=== PATIENT | female | born 1975 | race Caucasian/White ===

== ENCOUNTER 2021-04-28 09:12 | Outpatient (CLI) | payer OTHER, SELFPAY ==
--- NOTE | ~2021-04-28 | CT_ITS ---
EXAMINATION: CT LE RT wo con DATE: 04/28/2021 09:47 INDICATION: Right knee arthritis. TECHNIQUE: Computed tomography (CT) of the right lower limb was performed without intravenous contras t. Automated exposure control and iterative reconstruction technique were employed. The dose-length p roduct was 1814.84 mGy-cm. COMPARISON: Right knee radiographs 04/12/2021 FINDINGS: Bone alignment is normal. No fracture. There is mild right hip osteoarthritis. The knee dem onstrates moderate osteoarthritis of the patellofemoral compartment and mild osteoarthritis of the me dial and lateral compartments. There is a 1.6 cm subchondral cyst versus intraosseous ganglion at the junction of medial tibial condyle and intercondylar eminence posteriorly. There is a small knee join t effusion. There is a moderate-sized Brambila's cyst. IMPRESSION: 1. Moderate right knee osteoarthritis, worst at the patellofemoral compartment. 2. Small knee joint effusion. 3. Moderate-sized Brambila's cyst. Reviewed, dictated and finalized at location A.
== END 2021-04-28 09:13 | disposition home or self-care (01) ==
PROVIDERS: PCP Physician Assistant; Visit Provider Orthopaedic Surgery
DX: M17.11 Unilateral primary osteoarthritis, right knee (principal); M25.461 Effusion, right knee; M71.21 Synovial cyst of popliteal space [Baker], right knee
CPT/HCPCS: 73700

== ENCOUNTER 2021-05-30 07:14 | Outpatient (CLI) | payer OTHER, SELFPAY ==
[2021-05-30 08:11] LABS: Urine Cotinine NEGATIVE
== END 2021-05-30 07:15 | disposition home or self-care (01) ==
PROVIDERS: PCP Physician Assistant; Visit Provider Orthopaedic Surgery
DX: Z87.891 Personal history of nicotine dependence (principal)
CPT/HCPCS: 80307

== ENCOUNTER 2021-06-27 11:21 | Outpatient (CLI) | payer OTHER, SELFPAY ==
--- NOTE | 2021-06-27 12:49 | ECG_ITS ---
Measurements Intervals [place] Rate: 61 P: 31 IN: 156 QRS: 10 QRSD: 94 T: 5 QT: 414 QTc: 420 Interpretive Statements SINUS RHYTHM WITH SINUS ARRHYTHMIA BORDERLINE T WAVE ABNORMALITY- INFERIOR LEADS BASELINE ARTIFACT- I, II, III, AVL, AVF BORDERLINE ECG Electronically Signed On 06-27-2021 12:57:49 CDT by Juan Fraser D.O.
[2021-06-27 13:12] LABS: Basophils Percent Auto 0.4 % (0.2-1.2); Eosinophils Absolute Auto 0.1 K/mm3 (0-0.3); Eosinophils Percent Auto 0.9 % (0-4.4); Hematocrit 37.2 % (37.0-47.0); Hemoglobin 12.2 g/dL (12.0-15.0); Immature Granulocyte Absolute 0.01 K/mm3 (0.00-0.031); Immature Granulocyte Percent A 0.1 % (0-0.5); Lymphocytes Percent Auto 32.6 % (18.3-44.2); Mean Corpuscular HGB Conc 32.8 g/dl (32-36); Mean Corpuscular Volume 88.4 fl (80-100); Mean Platelet Volume 10.4 fl (7.4-10.4); Monocytes Absolute Auto 0.4 K/mm3 (0.1-0.6); Monocytes Percent Auto 5.2 % (2.6-8.5); Neutrophils Absolute Auto 4.7 K/mm3 (1.3-6.7); Neutrophils Percent Auto 60.8 % (45.5-73.1); Platelet Count Result 278 k/mm3 (150-375); Red Blood Count 4.21 M/mm3 (4.2-5.4); Red Cell Distribution Width 13.2 % (11.5-14.5); White Blood Count 7.7 K/mm3 (4.5-10.0)
[2021-06-27 13:15] LABS: Albumin Level 4.1 g/dL (3.5-5.1)
[2021-06-27 13:19] LABS: Anion Gap 4 mmol/L (8-16); Blood Urea Nitrogen 13 mg/dL (7-17); Calcium 9.4 mg/dL (8.4-10.2); Carbon Dioxide 30 mmol/L (22-30); Chloride 105 mmol/L (98-107); Estimated Glomerular Filt Rate > 60; Glucose 98 mg/dL (65-110); Potassium 4.2 mmol/L (3.4-5.0); Sodium 139 mmol/L (137-145)
[2021-06-27 13:50] LABS: Hemoglobin A1C 5.5 % (<5.7)
== END 2021-06-27 11:22 | disposition home or self-care (01) ==
LOC: ANHSURGERY 11:21
PROVIDERS: Anesthesiology; PCP Physician Assistant; Visit Provider Orthopaedic Surgery
DX: M17.11 Unilateral primary osteoarthritis, right knee (principal); Z01.818 Encounter for other preprocedural examination; Z51.81 Encounter for therapeutic drug level monitoring; Z79.899 Other long term (current) drug therapy; R94.31 Abnormal electrocardiogram [ECG] [EKG]
CPT/HCPCS: 36415; 80048; 82040; 83036; 85025; 87081; 93005

== ENCOUNTER 2021-07-26 02:29 | Day surgery (SDC) | payer OTHER, SELFPAY ==
[2021-06-27 12:05] VITALS: BP 117/85; PULSE 73; RESP 16; TEMP 36.9; O2SAT 100; BMI 34.1
--- NOTE | 2021-07-19 13:23 | PC.NURSE ---
Patient was contacted states no change in health since interviewed on 06/27/2021 she was given new date and time of surgery. This case was rescheduled and moved to 2 days later.
--- NOTE | 2021-07-25 09:02 | WPDANESEPPF ---
Anes - Initial Pre Proc Eval Procedure: Operation Date: 07/26/21 07:30 Proposed Procedures p Custom Right Total Knee Replacement - Timoteo Tabares MD Date/Time: 07/25/21 09:02 Surgeon: Timoteo Tabares MD Pre Op Diagnosis: primary OA right knee Patient Data Age: 46 Gender: F Height: 1.63 m Weight: 90.2 kg Last Vital Signs Temp 36.9 C 06/27/21 12:05 Pulse 73 06/27/21 12:05 Resp 16 06/27/21 12:05 BP 117/85 06/27/21 12:05 Pulse Ox 100 06/27/21 12:05 Allergies Allergy/AdvReac Type Severity Reaction Status Date / Time Sulfa (Sulfonamide Allergy Severe Anaphylaxis Verified 07/26/21 06:28 Antibiotics) atenolol Allergy Unknown Chest Verified 07/26/21 06:28 Pain, DYSPNEA atorvastatin AdvReac Unknown Joint Verified 07/26/21 06:28 Pain, MUSC PAIN Home Medications Medication Instructions Recorded Confirmed Type aspirin 81 mg tablet,delayed 81 mg PO DAILY 03/20/21 07/26/21 History release cetirizine 10 mg tablet 10 mg PO DAILY PRN 03/20/21 07/26/21 History hydrochlorothiazide 12.5 mg tablet 12.5 mg PO QAM 03/20/21 07/26/21 History losartan 25 mg tablet 25 mg PO QAM 03/20/21 07/26/21 History multivitamin 1 tablet PO DAILY 03/20/21 07/26/21 History pravastatin 20 mg tablet 20 mg PO QAM 03/20/21 07/26/21 History apple cider vinegar 1,000 mg PO DAILY 06/27/21 07/26/21 History ascorbate calcium (vitamin C) 500 mg PO DAILY 06/27/21 07/26/21 History ascorbic acid-collagen [Collagen 1 cap PO DAILY 06/27/21 07/26/21 History Plus Vitamin C] b.pmz-jdu-xznss-baf-kigr-hxsqu 2 ea PO DAILY 06/27/21 07/26/21 History [Black Cohosh Menopause Complex] ketorolac 10 mg PO Q12-24H PRN 06/27/21 07/26/21 History Patient hx anesthesia problems: none Family hx anesthesia problems: none PMFSH Past Medical History Medical History (Updated 07/25/21 @ 09:04 by Andres Richardson DO) Aortic atherosclerosis CVA (cerebral vascular accident) x2 at age 31, due to hypertensive crisis. No residual deficits GERD (gastroesophageal reflux disease) History of nicotine dependence Hypertension Migraine Surgical History Surgical History History of cholecystectomy (~2010) History of partial hysterectomy (~2009) History of varicose vein stripping (~2005) Family History Family History Mother Arthritis Skin cancer Social History Social History Smoking status: Former smoker Tobacco type: cigarettes Smoking end date: 04/17/21 Additional smoking assessment comments: SMOKED 2 CIG/MONTHS X 5 YEARS, QUIT 04/17/21 Alcohol intake: current Alcohol use details: once per month Substance use: never Living arrangements: with family Additional living arrangements comments: HUSB Spiritual care concerns: No Anes - Eval Final PreProcedure Day of Procedure 07/25/21 09:02 Patient weight: obese Heart: regular rate and rhythm Lungs: clear to auscultation and normal air movement Airway: Mallampati scale class II Neurological: alert and oriented Last oral intake: >/= 8 hours ASA classification: III Emergent: no Anesthetic plan: proceed Anesthesia type and monitoring: general LMA and standard monitoring Informed Consent: The patient's anesthetic plan and its attendant risks and benefits were discussed with the patient/family/POA. Questions were solicited and answers provided to the satisfaction of the patient/family/POA.
--- NOTE | 2021-07-25 09:04 | WPDANESPNB ---
Anes - Peripheral Nerve Block Date/Time: 07/25/21 09:04 I have discussed with the patient/family/POA the placement of a peripheral nerve block for post-operative pain management, including associated risks, benefits, complications, and side effects. Alternative methods of post-operative analgesia were detailed. Questions were solicited and answers provided to the satisfaction of the patient/family/POA. Time-Out: A pre-procedural Time-Out was completed immediately before starting the procedure and confirmed: Patient Identification, Site, Procedure, Patient Position and the Availability of Requisite Equipment. Clinical Indications: Acute post-operative pain management requested by the operative surgeon. Nerve Block Insertion Note Anes-nerve block: adductor canal right Patient position: supine Skin prep: chlorhexidine Needle: 22 gauge, stimulating, insulated echogenic needle. Needle length: 80 mm Technique: ultrasound Injectate: bupivacaine 0.5% with epi 5 mcg/ml (30cc - no epi) Observations: tolerated well Complications: none Procedure start time:: 710 Procedure end time:: 714
[2021-07-26] VITALS (16 sets, daily range): BP systolic 107–130; BP diastolic 57–93; PULSE 69–110; RESP 7–16; TEMP 36.3–36.6; O2SAT 93–100
--- NOTE | ~2021-07-26 | XR_ITS ---
EXAMINATION: XR knee RT 2V EXAM DATE: 07/26/2021 10:44 INDICATION: Right knee total arthroplasty. TECHNIQUE: Portable frontal, crosstable lateral projections right knee obtained immediately followin g arthroplasty performed by orthopedic surgeon Timoteo Tabares MD. FINDINGS: Patient is status post total knee arthroplasty. The orthopedic hardware is in expected po sition. There is small amount of subcutaneous gas, gas within the knee joint space. Overlying soft tissue swelling. Correlate with procedure note. IMPRESSION: Status post total right knee arthroplasty. Reviewed, dictated and finalized at location B.
[2021-07-26] MEDS: ACETAMINOPHEN 500 MG TABLET 1000 MG PO (06:42)
[2021-07-26] MEDS: LACTATED RINGERS 1,000 ML 30 ML IV CONT ×2 (06:50→10:29)
[2021-07-26] MEDS: TRANEXAMIC ACID 1,000MG/ISO100 1,000 MG/100 ML BAG 200 MG IVPB (06:56)
--- NOTE | 2021-07-26 07:22 | WPDHPUPDATE1 ---
History and Physical Update Update Date/Time: 07/26/21 07:22 History and Physical has been reviewed, including an updated exam of the patient. There are NO changes in the patient's condition. Risks, benefits, and alternatives have been discussed and questions answered. Patient agrees to proceed with procedure.
[2021-07-26] MEDS: ceFAZolin 2 GM/D5W 50 ML 2 GM/50 ML BAG IVPB (07:26)
[2021-07-26] MEDS: GENTAMICIN BONE CEMENT REFOBACIN 1 EACH TOPICAL (09:08)
[2021-07-26] MEDS: fentaNYL CITRATE INJ (*CRX) 100 MCG/2 ML VIAL 25 MCG IV PUSH ×2 (11:19→11:29)
[2021-07-26] MEDS: ONDANSETRON INJ 4 MG/2 ML VIAL IV PUSH (11:45)
[2021-07-26] MEDS: oxyCODONE HCL (*CRX) 5 MG TAB IR PO (12:56)
--- NOTE | 2021-07-26 13:15 | SUR.PHASEII ---
1315- Dr. Tabares to outpatient room 15 and rounded on patient- notified MD patient cleared by physical therapy. Per Dr. Tabares he is OK with discharge home once patient tolerates lunch, has tolerable pain level, and meets anesthesia discharge criteria.
--- NOTE | 2021-07-26 14:35 | SUR.PHASEII ---
9550- Call to Dr. Richardson to verify patient OK for discharge home. Pain tolerable with block, vital signs stable, and anesthesia discharge criteria met at this time. Per Dr. Richardson can discharge patient home.
--- NOTE | 2021-07-26 17:05 | W.PM.PROC2 ---
Procedure Note - Detailed Date of Procedure 07/26/21 Pre-op Diagnosis primary OA right knee Post-op Diagnosis same Procedure Performed Total knee arthroplasty, right. Surgeon Timoteo Tabares MD [employer] Yelitza Berman PA-C Anesthesia general and regional (Subsartorial block.) Description of Procedure Physician environmental emergencies assistant, Yelitza Berman PA-C, required for surgery; including patient positioning, draping, tissue retraction, maintaining instrument position, cement removal, wound closure, and dressing placement. Preoperative antibiotics were given. The limb was prepped and draped in the usual sterile fashion with a well-padded tourniquet high on the thigh. The limb was exsanguinated and the tourniquet inflated to 300 mmHg. A longitudinal incision was created just medial to the patella. A trivector approach to the knee was performed. Arthrotomy was taken down through the joint capsule. No significant releases were initially taken. The femur was exposed and the F1 jig was applied. The coring tool was used to remove the cartilage for the F2 jig to sit flush with the bone. The jig was pinned and the distal cut carefully taken. Caliper measurements confirmed appropriate bony resections according to the preoperative templated plan. The F4 cutting jig for the femur was applied, at the standard rotation. The AP and anterior chamfer cuts were taken. The F5 jig was applied and the posterior chamfer cuts were taken. The tibia was prepared using the T1 jig, after removing cartilage for the jig contact points. Proper alignment was checked with the alignment leon. The tibia was cut using the T1u guide. Gap balancing was performed. Gap measurements were taken and the knee was trialed. Excellent alignment and soft tissue balancing was confirmed. The posterior cruciate ligament was recessed along the proximal tibia. The patella was cut for resurfacing. Three lug holes were drilled. Meniscal remnants were removed. The trial components were assembled. Excellent range of motion and proper soft tissue balancing were confirmed throughout the full range of motion. Patellar tracking was excellent. The knee was copiously irrigated periodically throughout the procedure. The real implants were cemented into position. Excess cement was carefully removed. The wound was closed in layers with interrupted #1 Vicryl suture, 2-0 strata fix suture, 0 strata fix suture, 2-0 strata fix suture. Steri-Strips placed on the skin with the knee flexed. Sterile bulky dressing applied. The patient was brought to the recovery room in stable condition. There were no complications. Implants [employer]form[employer] Custom total knee arthroplasty. Cemented. Cruciate retaining. 6A insert. 32 mm round patella. Estimated Blood Loss 50 Tourniquet Time 99 Drains No Complications No immediate complications Condition stable Disposition PACU
== END 2021-07-26 14:45 | disposition home or self-care (01) ==
PROVIDERS: PCP Physician Assistant; Visit Provider Orthopaedic Surgery
PROC: (CPT 27447; principal; 2021-07-26 07:30)
DX: M17.11 Unilateral primary osteoarthritis, right knee (principal); G89.18 Other acute postprocedural pain; I10 Essential (primary) hypertension; K21.9 Gastro-esophageal reflux disease without esophagitis; I70.0 Atherosclerosis of aorta; Z86.73 Personal history of transient ischemic attack (TIA), and cerebral infarction without residual deficits; Z79.82 Long term (current) use of aspirin; Z87.891 Personal history of nicotine dependence; E66.9 Obesity, unspecified; Z68.34 Body mass index [BMI] 34.0-34.9, adult
CPT/HCPCS: 27447; 64447; 36415; 73560; 80048; 82040; 83036; 85025; 86850; 86900; 86901; 87081; 93005; 97161; A9270; C1713; C1776; J0171; J0690; J1100; J1885; J2250; J2270; J2405; J2590; J2704; J2795; J3010; J7120

== ENCOUNTER 2021-09-27 14:14 | Outpatient (CLI) | payer OTHER, SELFPAY ==
[2021-09-27 15:25] LABS: Anion Gap 9 mmol/L (8-16); Blood Urea Nitrogen 12 mg/dL (7-17); Calcium 9.2 mg/dL (8.4-10.2); Carbon Dioxide 30 mmol/L (22-30); Chloride 101 mmol/L (98-107); Estimated Glomerular Filt Rate > 60; Glucose 122 mg/dL (65-110); Potassium 3.8 mmol/L (3.4-5.0); Sodium 140 mmol/L (137-145)
== END 2021-09-27 14:15 | disposition home or self-care (01) ==
LOC: ANHSURGERY 14:15
PROVIDERS: Anesthesiology; PCP Physician Assistant; Visit Provider Orthopaedic Surgery
DX: Z79.899 Other long term (current) drug therapy (principal)
CPT/HCPCS: 36415; 80048

== ENCOUNTER 2021-10-02 03:15 | Day surgery (SDC) | payer OTHER, SELFPAY ==
[2021-09-26 14:49] VITALS: BMI 35.6
--- NOTE | 2021-09-26 14:57 | PC.NURSE ---
Report to the Outpatient Waiting Room, entrance under the green pavilion located off [facility], at 11:30 on date 10/02/21. OR Time: 1:30. - You and your visitor will be asked a series of questions to screen for COVID 19 for your protection. - A mask is required within the hospital. - Only one visitor is allowed at this time. Patient visitors will be guided where to wait when not with patient. Preoperative COVID Testing Requirements: No COVID Test needed if: (proof is required; if not received patient will have Rapid Test prior to entry) - Patient has received COVID Vaccine at least 14 days prior to procedure date or - Patient has positive COVID test result within last 90 days of surgery date. COVID Test needed if above criteria is not met If not COVID vaccinated a COVID test must be conducted within 72 hours of surgery and patient is asked to isolate self from time of testing until procedure. You will go to the [facility] for your COVID testing. The [facility] is located at the corner of [address] [facility]. You will only be called if COVID results are positive and your surgeon may reschedule your elective surgery date. Patients may have clear liquids (water, carbonated beverages, clear teas, apple juice) until 3 hours prior to surgery with a maximum of 20 ounces. - No food from midnight until time of surgery - Infants may have breast milk until 4 hours before surgery, formula 6 hours prior to surgery. - Children will be allowed to drink immediately following surgery. If applicable, please bring a bottle or sippy cup to assist with drinking. Juice, water, soda, and popsicles are readily available. For infants on formula, please bring formula the day of surgery. Pacifiers are allowed. Take the following medications with a SIP of water the morning of surgery: PAIN PILL IF NEEDED Medications to discontinue per physician VITAMINS/SUPPLEMENTS STOP 3 DAYS PRE-OP, ASPIRIN AND KETOROLAC PER DR. HOWELL Please no make-up, nail serbian, hairspray, perfume, deodorant, or body powder the day of surgery. No jewelry (including any body piercings) or valuables the day of surgery, leave them at home. Please take a shower or bath the night before, or the morning of, surgery with an antibacterial soap. Wear comfortable, loose fitting clothing. Children are encouraged to wear pajamas. - Jewelry must be removed prior to entering the operating room. Rings and piercings that are not removed may be cut off. - The hospital will not accept responsibility for valuables. - Please leave all valuables, including medications, at home the day of surgery. If you are going home after surgery, a licensed company truck driver must drive you home. - NO public transportation without another adult. - We recommend that an adult stay with you for 24 hours following discharge. - We also recommend that you do not drive, make important decision, drink alcoholic beverages, or take any drugs that were not prescribed by your health care provider for at least 24 hours after your discharge time. For Pediatric surgeries, we recommend two adults accompany the child home (only one inside the building at this time). Follow any additional instructions given to you from your surgeon. Telephone instructions given to NOLA LEE and asked if any additional questions and then verbalized understanding. Patient advised to call surgeon office or pre surgery nurse liaison [phone] if any additional questions.
[2021-10-02] VITALS (8 sets, daily range): BP systolic 105–139; BP diastolic 77–83; PULSE 56–100; RESP 12–16; TEMP 36.1–36.6; O2SAT 98–100
[2021-10-02] MEDS: KETOROLAC 15 MG/ML VIAL (*BKC) IV PUSH (12:21)
[2021-10-02] MEDS: LACTATED RINGERS 1,000 ML 30 ML IV CONT ×2 (12:30→15:05)
--- NOTE | 2021-10-02 12:32 | WPDANESEPPF ---
Anes - Initial Pre Proc Eval Procedure: Operation Date: 10/02/21 13:30 Proposed Procedures p Right Knee Manipulation - Timoteo Tabares MD Date/Time: 10/02/21 12:32 Surgeon: Timoteo Tabares MD Pre Op Diagnosis: s/p right total knee replacement Patient Data Age: 46 Gender: F Height: 1.63 m Weight: 96.2 kg Last Vital Signs Temp 36.6 C 10/02/21 11:30 Pulse 72 10/02/21 11:30 Resp 16 10/02/21 11:30 BP 139/81 10/02/21 11:30 Pulse Ox 100 10/02/21 11:30 Allergies Allergy/AdvReac Type Severity Reaction Status Date / Time Sulfa (Sulfonamide Allergy Severe Anaphylaxis Verified 09/26/21 14:47 Antibiotics) atenolol Allergy Intermediate Chest Verified 10/02/21 11:59 Pain, DYSPNEA atorvastatin AdvReac Intermediate Joint Verified 10/02/21 11:59 Pain, MUSC PAIN Home Medications Medication Instructions Recorded Confirmed Type aspirin 81 mg tablet,delayed 81 mg PO DAILY 03/20/21 10/02/21 History release cetirizine 10 mg tablet 10 mg PO DAILY PRN 03/20/21 10/02/21 History hydrochlorothiazide 12.5 mg tablet 12.5 mg PO QAM 03/20/21 10/02/21 History losartan 25 mg tablet 25 mg PO QAM 03/20/21 10/02/21 History multivitamin 1 tablet PO DAILY 03/20/21 10/02/21 History pravastatin 20 mg tablet 20 mg PO QAM 03/20/21 10/02/21 History Black Cohosh Menopause Complex 2 ea PO DAILY 06/27/21 10/02/21 History Collagen Plus Vitamin C 1 cap PO DAILY 06/27/21 10/02/21 History apple cider vinegar 1,000 mg PO DAILY 06/27/21 10/02/21 History ascorbate calcium (vitamin C) 500 mg PO DAILY 06/27/21 10/02/21 History ketorolac 10 mg PO Q12-24H PRN 06/27/21 10/02/21 History oxycodone-acetaminophen 5 mg-325 1 - 2 tablet PO Q4-6H PRN #40 09/26/21 10/02/21 Rx mg tablet tablet MDD 6 Patient hx anesthesia problems: none Family hx anesthesia problems: none Results Review: All pre-operative results and documents have been reviewed as part of the pre-operative evaluation. [facility] Past Medical History Medical History Aortic atherosclerosis CVA (cerebral vascular accident) x2 at age 31, due to hypertensive crisis. No residual deficits GERD (gastroesophageal reflux disease) History of nicotine dependence Hypertension Migraine Surgical History Surgical History History of cholecystectomy (~2010) History of partial hysterectomy (~2009) History of total right knee replacement (~07/24/21) History of varicose vein stripping (~2005) Family History Family History Mother Arthritis Skin cancer Social History Social History Smoking status: Former smoker Tobacco type: cigarettes Smoking end date: 04/24/21 Additional smoking assessment comments: 1-2 CIGARETTES A WEEK, OFF AND ON Alcohol intake: never Alcohol use details: once per month Substance use: never Substance use type: does not use Living arrangements: with family Additional living arrangements comments: HUSB Spiritual care concerns: No Anes - Eval Final PreProcedure Day of Procedure 10/02/21 12:32 Patient weight: obese Heart: regular rate and rhythm Lungs: clear to auscultation Airway: Mallampati scale class II Neurological: alert and oriented Last oral intake: >/= 8 hours ASA classification: III Emergent: no Anesthetic plan: proceed Anesthesia type and monitoring: general LMA and standard monitoring Results Review: All pre-operative results and documents have been reviewed as part of the pre-operative evaluation. Informed Consent: The patient's anesthetic plan and its attendant risks and benefits were discussed with the patient/family/POA. Questions were solicited and answers provided to the satisfaction of the patient/family/POA.
--- NOTE | 2021-10-02 13:22 | WPDHPUPDATE1 ---
History and Physical Update Update Date/Time: 10/02/21 13:22 The correct side is RIGHT. History and Physical has been reviewed, including an updated exam of the patient. There are NO changes in the patient's condition. Risks, benefits, and alternatives have been discussed and questions answered. Patient agrees to proceed with procedure.
[2021-10-02] MEDS: ONDANSETRON INJ 4 MG/2 ML VIAL IV PUSH (13:55)
[2021-10-02] MEDS: diphenhydrAMINE HCl INJ 50 MG/ML VIAL 25 MG IV PUSH (14:05)
[2021-10-02] MEDS: fentaNYL CITRATE INJ (*CRX) 100 MCG/2 ML VIAL 25 MCG IV PUSH ×8 (14:05→14:43)
[2021-10-02] MEDS: DEXAMETHASONE SOD PHOS INJ 4 MG/ML VIAL 8 MG IV PUSH (14:05)
[2021-10-02] MEDS: oxyCODONE HCL (*CRX) 5 MG TAB IR PO (15:32)
--- NOTE | 2021-10-02 17:05 | W.PM.PROC2 ---
Procedure Note - Detailed Date of Procedure 10/02/21 Pre-op Diagnosis 1.s/p right total knee replacement 2. right knee contracture. Post-op Diagnosis same Procedure Performed Manipulation under anesthesia, right knee. Surgeon Timoteo Tabares MD [employer]ation [employer]a Analyst Yelitza Bridges PA-C Anesthesia general Description of Procedure A general anesthetic was administered. Examination revealed range of motion from 0 to 95?. Gentle flexion improve the motion to 125?. Adhesions were felt to gently release. Range of motion and balance of the knee felt optimal. Estimated Blood Loss 0 Complications No immediate complications Condition stable Disposition PACU
== END 2021-10-02 16:10 | disposition home or self-care (01) ==
PROVIDERS: PCP Physician Assistant; Visit Provider Orthopaedic Surgery
PROC: (CPT 27570; principal; 2021-10-02 13:30)
DX: M24.561 Contracture, right knee (principal); Z79.82 Long term (current) use of aspirin; I70.0 Atherosclerosis of aorta; Z86.73 Personal history of transient ischemic attack (TIA), and cerebral infarction without residual deficits; K21.9 Gastro-esophageal reflux disease without esophagitis; Z87.891 Personal history of nicotine dependence; E66.9 Obesity, unspecified; Z68.36 Body mass index [BMI] 36.0-36.9, adult
CPT/HCPCS: 27570; A9270; J1100; J1200; J1885; J2250; J2405; J2704; J3010; J7120

== ENCOUNTER 2022-06-05 10:16 | Outpatient (CLI) | payer OTHER, SELFPAY ==
--- NOTE | ~2022-06-05 | XR_ITS ---
XR knee LT min 4V DATE: 06/05/2022 10:44 INDICATION: Left knee pain TECHNIQUE: [facility] and standing AP, PA and COMPARISON: 04/12/2021 bilateral knees FINDINGS: There is joint space narrowing and prominent periarticular spurring at the patellofemoral j oint consistent with osteoarthritis. There is mild periarticular spurring of the medial femoral condyle. Medial and lateral compartment killian int spaces are relatively preserved. No fracture or dislocation or joint effusion. No radiopaque interarticular loose body or chondrocalci nosis. No periosteal reaction or bone destruction. IMPRESSION: Osteophytosis involving the patellofemoral and medial compartments Reviewed, dictated and finalized at location A.
== END 2022-06-05 10:17 | disposition home or self-care (01) ==
LOC: ANHIMG 10:18
PROVIDERS: PCP Physician Assistant; Visit Provider Orthopaedic Surgery
DX: M17.12 Unilateral primary osteoarthritis, left knee (principal); M25.762 Osteophyte, left knee
CPT/HCPCS: 73564

== ENCOUNTER 2022-06-07 07:05 | Outpatient (CLI) | payer OTHER, SELFPAY ==
--- NOTE | 2022-06-07 | ECG_ITS ---
Measurements Intervals [place] Rate: 70 P: 43 AL: 156 QRS: 14 QRSD: 102 T: 30 QT: 394 QTc: 426 Interpretive Statements SINUS RHYTHM VOLTAGE CRITERIA FOR LVH BORDERLINE ST-T WAVE ABNORMALITY- DIFFUSE LEADS BORDERLINE ECG Electronically Signed On 06-07-2022 18:24:26 CDT by Juan Fraser D.O.
[2022-06-07 07:40] LABS: Hemoglobin A1C 5.3 % (<5.7)
[2022-06-07 07:43] LABS: Albumin Level 4.3 g/dL (3.5-5.1); Estimated Glomerular Filt Rate 60; Glucose 105 mg/dL (65-110)
[2022-06-07 07:46] LABS: Hematocrit 39.3 % (37.0-47.0); Hemoglobin 13.2 g/dL (12.0-15.0)
[2022-06-07 07:47] LABS: Urine Cotinine NEGATIVE
== END 2022-06-07 07:06 | disposition home or self-care (01) ==
PROVIDERS: PCP Physician Assistant; Visit Provider Orthopaedic Surgery
DX: M17.12 Unilateral primary osteoarthritis, left knee (principal); Z01.818 Encounter for other preprocedural examination; R94.31 Abnormal electrocardiogram [ECG] [EKG]
CPT/HCPCS: 80307; 82040; 82565; 82947; 83036; 85014; 85018; 93005

== ENCOUNTER 2022-06-22 12:53 | Outpatient (CLI) | payer OTHER, SELFPAY ==
--- NOTE | ~2022-06-22 | CT_ITS ---
EXAMINATION: CT LE LT wo con DATE: 06/22/2022 13:55 INDICATION: Left knee arthritis TECHNIQUE: High resolution computed tomography (CT) of the left lower limb extending from the hip thr ough the ankle was performed without intravenous contrast. Additional sagittal and coronal reconstruc tions were performed. Automated exposure control and iterative reconstruction technique were employed . The dose-length product was 1786.80 mGy-cm. COMPARISON: 06/05/2022 FINDINGS: Proximally 1 severe lateral patellar subluxation with moderate to severe joint space narrowing at the lateral aspect of the patellofemoral compartment and a few tiny cystlike changes along the abutting articular cortices of the lateral patellar facet and lateral trochlea. Small patellofemoral marginal osteophytes are present. Small marginal osteophytes in the medial and lateral compartments with relat ively preserved joint spaces on nonweightbearing imaging. No fracture. Small bone island at the media l femoral condyle. Additional mild osteoarthritis at the left hip and ankle joints. Moderate to sever e osteoarthritis with additional associated subarticular cystic changes at the subtalar joint. Large os trigonum. No hip, knee or ankle joint effusion. Soft tissues including the musculature of the left upper and lower leg are unremarkable. Visualized visceral organs of the pelvis are unremarkable. No free fluid in the pelvis. No pathologically enlarged pelvic or left inguinal lymphadenopathy. IMPRESSION: 1. Polyarticular osteoarthritis, moderate to severe at the patellofemoral compartment of the left kne e and at the subtalar joint at the left hindfoot. No acute osseous abnormality. Reviewed, dictated and finalized at location A. IMPRESSION: 1. Polyarticular osteoarthritis, moderate to severe at the patellofemoral regina rtment of the left knee and at the subtalar joint at the left hindfoot. No acut e osseous abnormality.
== END 2022-06-22 12:54 | disposition home or self-care (01) ==
PROVIDERS: PCP Physician Assistant; Visit Provider Orthopaedic Surgery
DX: M17.12 Unilateral primary osteoarthritis, left knee (principal)
CPT/HCPCS: 73700

== ENCOUNTER 2022-07-31 08:05 | Outpatient (CLI) | payer OTHER, SELFPAY ==
[2022-07-31 09:19] LABS: Basophils Percent Auto 0.4 % (0.2-1.2); Eosinophils Percent Auto 0.3 % (0-4.4); Hematocrit 41.4 % (37.0-47.0); Hemoglobin 13.4 g/dL (12.0-15.0); Immature Granulocyte Absolute 0.06 K/mm3 (0.00-0.031); Immature Granulocyte Percent A 0.5 % (0-0.5); Lymphocytes Absolute Auto 1.99 K/mm3 (0.9-3.2); Lymphocytes Percent Auto 17.5 % (18.3-44.2); Mean Corpuscular HGB Conc 32.4 g/dl (32-36); Mean Corpuscular Hemoglobin 28.6 pg (26-34); Mean Corpuscular Volume 88.5 fl (80-100); Mean Platelet Volume 10.9 fl (7.4-10.4); Monocytes Absolute Auto 0.6 K/mm3 (0.1-0.6); Monocytes Percent Auto 4.9 % (2.6-8.5); Neutrophils Absolute Auto 8.7 K/mm3 (1.3-6.7); Neutrophils Percent Auto 76.4 % (45.5-73.1); Platelet Count Result 275 k/mm3 (150-375); Red Blood Count 4.68 M/mm3 (4.2-5.4); Red Cell Distribution Width 12.9 % (11.5-14.5); White Blood Count 11.4 K/mm3 (4.5-10.0)
[2022-07-31 09:29] LABS: Urine Cotinine NEGATIVE
[2022-07-31 09:29] LABS: Albumin Level 4.5 g/dL (3.5-5.1)
[2022-07-31 09:32] LABS: Anion Gap 12 mmol/L (8-16); Blood Urea Nitrogen 17 mg/dL (7-17); Calcium 9.5 mg/dL (8.4-10.2); Carbon Dioxide 26 mmol/L (22-30); Chloride 100 mmol/L (98-107); Estimated Glomerular Filt Rate > 60; Glucose 91 mg/dL (65-110); Potassium 4.2 mmol/L (3.4-5.0); Sodium 138 mmol/L (137-145)
== END 2022-07-31 08:06 | disposition home or self-care (01) ==
LOC: ANHSURGERY 08:12
PROVIDERS: Anesthesiology; PCP Physician Assistant; Visit Provider Orthopaedic Surgery
DX: M17.12 Unilateral primary osteoarthritis, left knee (principal); I10 Essential (primary) hypertension; Z01.818 Encounter for other preprocedural examination
CPT/HCPCS: 80048; 80307; 82040; 85025; 86850; 86900; 86901; 87081

== ENCOUNTER 2022-08-12 01:35 | Day surgery (SDC) | payer OTHER, SELFPAY ==
[2022-07-31 08:19] VITALS: BMI 35.0
--- NOTE | 2022-07-31 08:44 | PC.NURSE ---
Report to the Outpatient Waiting Room, entrance under the green pavilion located off [facility], at time 1000 on date __08/12/22 . OR Time: ___1200 . - You and your visitor will be asked to self-screen and do not enter if you have any COVID symptoms. - Only one visitor and NO children visitors are allowed at this time. - The patient visitor is requested to leave or wait in car when not with patient due to restrictions. - A mask is required within the hospital. Patients may have clear liquids (water, carbonated beverages, clear teas, apple juice) until 3 hours prior to surgery with a maximum of 20 ounces. - No food from midnight until time of surgery - Infants may have breast milk until 4 hours before surgery, infant formula 6 hours prior to surgery. - Children will be allowed to drink immediately following surgery. If applicable, please bring a bottle or sippy cup to assist with drinking. Juice, water, soda, and popsicles are readily available. For infants on formula, please bring formula the day of surgery. Pacifiers are allowed. Take the following medications with a SIP of water the morning of surgery: ___NONE Medications to discontinue per physician ___ASPIRIN AND IBUPROFEN 7 DAYS PRE OP. ALL VITAMINS AND SUPPLEMENTS 3 DAYS PRE OP Date to take last dose___ASPIRIN AND IBUPROFEN 08/04/22 ALL VIT/SUPP08/08/22 Please no make-up, nail sinhala, hairspray, perfume, deodorant, or body powder the day of surgery. No jewelry (including any body piercings) or valuables the day of surgery, leave them at home. Please take a shower or bath the night before, or the morning of, surgery with an antibacterial soap. Wear comfortable, loose fitting clothing. Children are encouraged to wear pajamas. - Jewelry must be removed prior to entering the operating room. Rings and piercings that are not removed may be cut off. - The hospital will not accept responsibility for valuables. - Please leave all valuables, including medications, at home the day of surgery. If you are going home after surgery, a licensed semi truck driver must drive you home. - NO public transportation without another adult. - We recommend that an adult stay with you for 24 hours following discharge. - We also recommend that you do not drive, make important decision, drink alcoholic beverages, or take any drugs that were not prescribed by your health care provider for at least 24 hours after your discharge time. For Pediatric surgeries, we recommend two adults accompany the child home (only one inside the building at this time). Follow any additional instructions given to you from your surgeon. If you or anyone in your household have experienced Covid symptoms in the past week, please notify your surgeon or the nurse liaison at the phone number below for possible testing. VERBAL AND WRITTEN instructions given to __PATIENT and asked if any additional questions and then verbalized understanding. Patient advised to call surgeon office or pre surgery nurse liaison [phone] if any additional questions.
[2022-07-31 08:59] VITALS: BP 124/90; PULSE 63; RESP 18; TEMP 36.7; O2SAT 99
[2022-08-12] VITALS (11 sets, daily range): BP systolic 99–131; BP diastolic 65–94; PULSE 64–90; RESP 8–18; TEMP 36.3–36.6; O2SAT 95–100
--- NOTE | ~2022-08-12 | XR_ITS ---
EXAMINATION: XR knee LT 2V DATE: 08/12/2022 16:03 CDT INDICATION: Left total knee arthroplasty TECHNIQUE: 2 views left knee FINDINGS: There is a left total knee arthroplasty in expected position. Subcutaneous gas with fluid and air in the joint are consistent with recent surgery. No evidence of periprosthetic fracture. IMPRESSION: 1. Recent left total knee arthroplasty. Reviewed, dictated and finalized at location A.
--- NOTE | 2022-08-12 08:02 | WPDANESEPPF ---
Anes - Initial Pre Proc Eval Procedure: Operation Date: 08/12/22 12:00 Proposed Procedures p Left Custom Total Knee Arthroplasty - Timoteo Tabares MD Date/Time: 08/12/22 08:02 Surgeon: Timoteo Tabares MD Pre Op Diagnosis: primary oa left knee Patient Data Age: 47 Gender: F Height: 1.63 m Weight: 92.6 kg Last Vital Signs Temp 36.7 C 07/31/22 08:59 Pulse 63 07/31/22 08:59 Resp 18 07/31/22 08:59 BP 124/90 07/31/22 08:59 Pulse Ox 99 07/31/22 08:59 O2 Del Method Room Air 07/31/22 08:59 Allergies Allergy/AdvReac Type Severity Reaction Status Date / Time Sulfa (Sulfonamide Allergy Severe Anaphylaxis Verified 08/12/22 10:23 Antibiotics) atenolol Allergy Intermediate Chest Verified 08/12/22 10:23 Pain, DYSPNEA atorvastatin AdvReac Intermediate Joint Verified 08/12/22 10:23 Pain, MUSC PAIN Home Medications Medication Instructions Recorded Confirmed Type aspirin 81 mg tablet,delayed 81 mg PO DAILY 03/20/21 08/12/22 History release (Adult Low Dose Aspirin) cetirizine 10 mg tablet (Zyrtec) 10 mg PO DAILY PRN Congestion 03/20/21 08/12/22 History multivitamin 1 tablet PO DAILY 03/20/21 08/12/22 History apple cider vinegar 500 mg tablet 1,000 mg PO DAILY 06/27/21 08/12/22 History ascorbic acid 125 mg-collagen, 1 cap PO DAILY 06/27/21 08/12/22 History hydrolyzed 740 mg capsule (Collagen Plus Vitamin C) [id number] 2 ea PO DAILY 06/27/21 08/12/22 History 20-250-50 mg(d)20-200-100 mg(n) tablets (Black Cohosh Menopause Complex) ketorolac 10 mg tablet 10 mg PO Q12-24H PRN Migraine 06/27/21 08/12/22 History Headache acetaminophen 500 mg tablet 1,000 mg PO Q6H PRN Pain 07/31/22 07/31/22 History (Acetaminophen Extra Strength) cholecalciferol (vitamin D3) 50 50 mcg PO DAILY 07/31/22 08/12/22 History mcg (2,000 unit) tablet furosemide 40 mg tablet 40 mg PO PRN PRN Edema 07/31/22 08/12/22 History ibuprofen 400 mg tablet 400 mg PO Q6H PRN Pain 07/31/22 08/12/22 History multivitamin with minerals 1 tablet PO DAILY 07/31/22 08/12/22 History (Hair,Skin and Nails tablet) potassium chloride 10 mEq 10 meq PO PRN PRN Edema 07/31/22 08/12/22 History capsule,extended release rosuvastatin 10 mg tablet 10 mg PO DAILY 07/31/22 08/12/22 History spironolactone 25 1 tablet PO DAILY 07/31/22 08/12/22 History mg-hydrochlorothiazide 25 mg tablet Patient hx anesthesia problems: none Family hx anesthesia problems: none Results Review: All pre-operative results and documents have been reviewed as part of the pre-operative evaluation. [facility] Past Medical History Medical History (Updated 08/12/22 @ 08:04 by Jah Bond MD) Aortic atherosclerosis CVA (cerebral vascular accident) x2 at age 31, due to hypertensive crisis. No residual deficits GERD (gastroesophageal reflux disease) History of nicotine dependence Hyperlipidemia Hypertension Migraine Surgical History Surgical History History of cholecystectomy (~2010) History of partial hysterectomy (~2009) History of total right knee replacement (~07/24/21) History of varicose vein stripping (~2005) Family History Family History Mother Arthritis Skin cancer Social History Social History Smoking packs per day: 0.5 Smoking cigarettes per day: 10.0 Years smoked: 10 Smoking pack-years: 5.00 Smoking status: Former smoker Tobacco type: cigarettes Smoking end date: 04/17/21 Additional smoking assessment comments: SMOKED 2 CIG/MONTHS X 5 YEARS, QUIT 04/17/21 Alcohol intake: never Alcohol use details: once per month Substance use: never Substance use type: does not use Living arrangements: with family Additional living arrangements comments: [facility] Gender identity
--- NOTE | 2022-08-12 08:04 | WPDANESPNB ---
Anes - Peripheral Nerve Block Date/Time: 08/12/22 08:04 I have discussed with the patient/family/POA the placement of a peripheral nerve block for post-operative pain management, including associated risks, benefits, complications, and side effects. Alternative methods of post-operative analgesia were detailed. Questions were solicited and answers provided to the satisfaction of the patient/family/POA. Time-Out: A pre-procedural Time-Out was completed immediately before starting the procedure and confirmed: Patient Identification, Site, Procedure, Patient Position and the Availability of Requisite Equipment. Clinical Indications: Acute post-operative pain management requested by the operative surgeon. Nerve Block Insertion Note Anes-nerve block: adductor canal left Patient position: supine Skin prep: chlorhexidine Needle: 22 gauge, stimulating, insulated echogenic needle. Needle length: 80 mm Technique: ultrasound Technique comment: in plane Injectate: bupivacaine 0.25% with epi 5 mcg/ml (30cc) Observations: tolerated well Complications: none Procedure start time:: 1200 Procedure end time:: 1205
[2022-08-12] MEDS: ACETAMINOPHEN 500 MG TABLET 1000 MG PO (10:35)
[2022-08-12] MEDS: LACTATED RINGERS 1,000 ML 30 ML IV CONT ×2 (10:50→14:50)
[2022-08-12] MEDS: TRANEXAMIC ACID 1,000MG/ISO100 1,000 MG/100 ML BAG 200 MG IVPB (11:32)
--- NOTE | 2022-08-12 12:08 | WPDHPUPDATE1 ---
History and Physical Update Update Date/Time: 08/12/22 12:08 History and Physical has been reviewed, including an updated exam of the patient. There are NO changes in the patient's condition. Risks, benefits, and alternatives have been discussed and questions answered. Patient agrees to proceed with procedure.
[2022-08-12] MEDS: ceFAZolin 2 GM/D5W 50 ML 2 GM/50 ML BAG IVPB (12:13)
[2022-08-12] MEDS: GENTAMICIN BONE CEMENT REFOBACIN 1 EACH TOPICAL (13:42)
--- NOTE | 2022-08-12 14:53 | P.OP_ITS ---
Procedure Note - Detailed Date of Procedure 08/12/22 Pre-op Diagnosis primary oa left knee Post-op Diagnosis Same Procedure Performed Total knee arthroplasty, left. Surgeon Timoteo Tabares MD Department Of Sociology Chair Yelitza Bridges PA-C Anesthesia General and Regional (Subsartorial block.) Findings Severe patellofemoral arthritis, with patellar erosion. Although thin inferior lateral, the bone was adequate for resurfacing. No releases. Good bone quality. Custom TKA. Description of Procedure Preoperative antibiotics were given. The limb was prepped and draped in the usual sterile fashion with a well-padded tourniquet high on the thigh. The limb was exsanguinated and the tourniquet inflated to 300 mmHg. A longitudinal incision was created just medial to the patella. A trivector approach to the knee was performed. Arthrotomy was taken down through the joint capsule. No significant releases were initially taken. The femur was exposed and the F1 jig was applied. The coring tool was used to remove the cartilage for the F2 jig to sit flush with the bone. The jig was pinned and the distal cut carefully taken. Caliper measurements confirmed appropriate bony resections according to the preoperative templated plan. The F4 cutting jig for the femur was applied, at the standard rotation. The AP and anterior chamfer cuts were taken. The F5 jig was applied and the posterior chamfer cuts were taken. The tibia was prepared using the T1 jig, after removing cartilage for the jig contact points. Proper alignment was checked with the alignment leon. The tibia was cut using the T1u guide. Gap balancing was performed. Gap measurements were taken and the knee was trialed. Excellent alignment and soft tissue balancing was confirmed. The posterior cruciate ligament was recessed along the proximal tibia. The patella was cut for resurfacing. Three lug holes were drilled. Meniscal remnants were removed. The trial components were assembled. Excellent range of motion and proper soft tissue balancing were confirmed throughout the full range of motion. Patellar tracking was excellent. The knee was copiously irrigated periodically throughout the procedure. The real implants were cemented into position. Excess cement was carefully removed. The wound was closed in layers with interrupted #1 Vicryl suture, 2-0 strata fix suture, 0 strata fix suture, 2-0 strata fix suture. Steri-Strips placed on the skin with the knee flexed. Sterile bulky dressing applied. The patient was brought to the recovery room in stable condition. There were no complications. Physician assistant restaurant general manager, Yelitza Bridges PA-C, required for surgery; including patient positioning, draping, tissue retraction, maintaining instrument position, cement removal, wound closure, and dressing placement. Implants Conformis Custom total knee arthroplasty. Cemented. Cruciate retaining. 6A insert. 32 mm round patella. Estimated Blood Loss 50 Tourniquet Time 27 Drains No Complications No immediate complications Condition Stable Disposition PACU [facility] Billing Surgery - Charge Forward: Surgery Billing
[2022-08-12] MEDS: fentaNYL CITRATE INJ (*CRX) 100 MCG/2 ML VIAL 25 MCG IV PUSH ×7 (15:25→16:01)
[2022-08-12] MEDS: HYDROmorphone HCL INJ (*CRX) 1 MG/ML SYR 0.5 MG IV PUSH ×2 (16:07→16:19)
[2022-08-12] MEDS: oxyCODONE HCL (*CRX) 5 MG TAB IR PO (17:05)
[2022-08-12] MEDS: ONDANSETRON INJ 4 MG/2 ML VIAL IV PUSH (17:07)
== END 2022-08-12 17:46 | disposition home or self-care (01) ==
PROVIDERS: PCP Physician Assistant; Visit Provider Orthopaedic Surgery
PROC: (CPT 27447; principal; 2022-08-12 12:00)
DX: M17.12 Unilateral primary osteoarthritis, left knee (principal); G89.18 Other acute postprocedural pain; I10 Essential (primary) hypertension; E78.5 Hyperlipidemia, unspecified; K21.9 Gastro-esophageal reflux disease without esophagitis; Z86.73 Personal history of transient ischemic attack (TIA), and cerebral infarction without residual deficits; I70.0 Atherosclerosis of aorta; Z87.891 Personal history of nicotine dependence; E66.9 Obesity, unspecified; Z68.35 Body mass index [BMI] 35.0-35.9, adult; Z79.82 Long term (current) use of aspirin
CPT/HCPCS: 27447; 64447; 73560; 80048; 80307; 82040; 85025; 86850; 86900; 86901; 87081; 97110; 97161; A9270; C1713; C1776; J0171; J0690; J1100; J1170; J1885; J2250; J2270; J2405; J2704; J2795; J3010; J7120